=== PATIENT | female | born 1965 | race Caucasian/White ===

== ENCOUNTER 2019-04-03 18:46 | Emergency (ER) | payer OTHER ==
[~2019-04-03] VITALS: Ht 167.6 cm; Wt 56.8 kg
[2019-04-03] MEDS ORDERED: HYDR25TA PO (18:58)
[2019-04-03] MEDS ORDERED: GABA-529 PO (18:58)
[2019-04-03] MEDS ORDERED: TRAZ-252 PO (18:58)
[2019-04-03 19:44] VITALS: BP 156/99
[2019-04-03] MEDS ORDERED: ChlordiazePOXIDE HCL 25 MG CAPSULE PO ONE (20:00)
== END 2019-04-03 20:54 | disposition home or self-care (01) ==
LOC: EMS 18:46
DX: F10.20 Alcohol dependence, uncomplicated (principal); I10 Essential (primary) hypertension; F17.210 Nicotine dependence, cigarettes, uncomplicated; Z88.1 Allergy status to other antibiotic agents; Z88.8 Allergy status to other drugs, medicaments and biological substances; Z79.899 Other long term (current) drug therapy; Y90.9 Presence of alcohol in blood, level not specified